=== PATIENT | female | born 2000 | race African-American/Black ===

== ENCOUNTER 2019-05-30 23:31 | Emergency (ER) | payer OTHER ==
[~2019-05-30] VITALS: Ht 162.6 cm; Wt 82.6 kg
[2019-05-30 23:40] VITALS: BP 130/78
--- NOTE | 2019-05-30 23:40 | NUR ---
ED Nurse Note: Patient presents to ED c/o intermittent sharp suprapubic px x 4 days. pt denies dysuria or hematuria at this time. 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 AAO x4, VSS at this time, skin is warm to touch
--- NOTE | 2019-05-31 00:26 | Emergency Room Report ---
History of Present Illness General Chief Complaint: Female Urogenital Problems Source: Patient Present Illness HPI Is a 18-year-old female with no past medical history. She presents with pain to suprapubic tenderness. Onset for last 4 days. She has a slight discharge. No urinary complaint. No fever chills but no dysuria. No nausea no vomiting. Pain is 5 out of 10. Nothing made it better. Nothing made it worse. She is sexually active with one partner with intermittent protection. History of chlamydia infection in the past. Allergies: Coded Allergies: No Known Allergies (Unverified , 05/30/19) Patient History Past Medical History: see triage record, old chart reviewed Past Surgical History: none Pertinent Family History: none Social History: Denies: smoking Last Menstrual Period: pt on depo shot Now: No - depo : 1 Para: 1 Immunizations: other Reviewed Nursing Documentation: PMH: Agreed; PSxH: Agreed Nursing Documentation-PMH Hx Asthma: Yes Hx Dialysis: No - anemia Review of Systems Eye: Denies: eye pain, blurred vision ENT: Denies: ear pain, nose congestion, throat swelling Respiratory: Denies: cough, shortness of breath Cardiovascular: Denies: chest pain, palpitations Gastrointestinal: Reports: abdominal pain; Denies: diarrhea, nausea, vomiting Musculoskeletal: Denies: back pain, joint pain Skin: Denies: rash Neurological: Denies: headache, numbness Endocrine: Denies: increased thirst, increased urine Hematologic/Lymphatic: Denies: easy bruising All Other Systems: negative except mentioned in HPI Physical Exam Vital Signs Date Time Temp Pulse Resp B/P (MAP) Pulse Ox O2 Delivery O2 Flow Rate FiO2 05/30/19 23:34 98.2 80 18 130/78 (95) 99 Room Air Vitals normal Sp02 EP Interpretation: reviewed, normal General Appearance: well appearing, no apparent distress, alert Head: normocephalic, atraumatic Eyes: bilateral eye PERRL, bilateral eye EOMI ENT: hearing grossly normal, normal pharynx Neck: full range of motion, supple, no meningismus Respiratory: chest non-tender, lungs clear, normal breath sounds Cardiovascular #1: regular rate, rhythm, no murmur Gastrointestinal: normal bowel sounds, non tender, no mass, no organomegaly, no bruit, non-distended Genitourinary: other - Pelvic exam done with female nurse as first sampler. External exam normal. Internal exam showed mild whitish discharge. Musculoskeletal: back normal, normal range of motion, gait/station normal Psychiatric: mood/affect normal Medical Decision Making Diagnostic Impression: Primary Impression: Acute cervicitis Additional Impression: UTI (urinary tract infection) Qualified Codes: N30.00 - Acute cystitis without hematuria ER Course This patient presents with acute cervicitis. This may be secondary to gonorrhea or chlamydia. No evidence of ectopic. No evidence of any torsion. Urine show mild urinary tract infection. This may be however secondary to the cervicitis itself. Will discharge home. Last Vital Signs Date Time Temp Pulse Resp B/P (MAP) Pulse Ox O2 Delivery O2 Flow Rate FiO2 05/30/19 23:40 98.2 18 130/78 99 Room Air 05/30/19 23:34 80 Status: improved Disposition: HOME, SELF-CARE Condition: Stable Scripts Doxycycline Monohydrate* (DOXYCYCLINE MONOHYDRATE*) 100 Mg Capsule 100 MG ORAL Q12H, #14 CAP 0 Refills Prov: Yunier Dial MD 05/31/19 Referrals: [facility],REFERRING (PCP) Additional Instructions: Follow-up with your doctor in 7 days. Recommend outpatient testing for HIV, hepatitis, syphilis and other STDs. Return if symptoms worsen. Yunier Dial MD May 31, 2019 00:26
[2019-05-31 00:35] LABS: BILIRUBIN, URINE NEGATIVE (NEGATIVE); COLOR,URINE PALE YELLOW; GLUCOSE, URINE (UA) NEGATIVE (NEGATIVE); KETONES,URINE NEGATIVE (NEGATIVE); NITRITE,URINE NEGATIVE (NEGATIVE); PH,URINE 6 (4.5-8.0); PROTEIN,URINE NEGATIVE (NEGATIVE); UROBILINOGEN,URINE NORMAL MG/DL (0.0-1.0)
[2019-05-31 00:46] LABS: APPEARANCE,URINE CLEAR
[2019-05-31 00:47] LABS: LEUKOCYTE ESTERASE ,URINE 2+ (NEGATIVE)
[2019-05-31] MEDS ORDERED: DOXYCYCLINE MO100 MG ORAL (01:05)
[2019-05-31 01:15] VITALS: BP 130/78
[2019-05-31] MEDS ORDERED: Lidocaine 1% MPF 10mg/ml 5ml INJ ONE (01:15)
[2019-05-31] MEDS ORDERED: Azithromycin 250mg tab ORAL ONE (01:15)
--- NOTE | 2019-05-31 01:15 | NUR ---
ED Nurse Note: Pt cleared by health care Provider for discharge. DC instructions/prescription was given and explained to pt and verbalized understanding of teachings. All medical deviecs such as ID band removed. Pt is AAO x4, ambulatory and left with all personal belongings.
== END 2019-05-31 01:15 | disposition home or self-care (01) ==
LOC: EMR 23:59
DX: N72 Inflammatory disease of cervix uteri (principal); N30.00 Acute cystitis without hematuria
CPT/HCPCS: 81003; 81025; 87086; 87210; 96372; 96374; J0696; Q0144; Z7502; 99284